=== PATIENT | female | born 1985 | race Two or more races ===

== ENCOUNTER 2016-05-10 10:13 | Day surgery (SDC) | payer OTHER, MEDICAID ==
--- NOTE | 2016-05-09 17:35 | HP ---
[facility] DATE OF SCHEDULED SURGERY: May 10, 2016 PREOPERATIVE DIAGNOSES: Desires tubal ligation. PROCEDURE PLANNED: Laparoscopic tubal ligation using Falope-Rings. HISTORY: The patient is a 30-year-old 5, para 5, woman who has been on a Depo for the last three years all without periods. She states she wants her tubes tied. She understands the procedure is permanent and there is no guarantee of success. She states her family is complete and wants something permanent done. PAST MEDICAL HISTORY: She denies major medical problems. PAST SURGICAL HISTORY: 1. Cholecystectomy. 2. One section and four V-MARELY. ALLERGIES: None. MEDICATIONS: None. FAMILY HISTORY: Noncontributory. SOCIAL HISTORY: Patient lives at home with her children. She is a light tobacco smoker. Does not use alcohol. REVIEW OF SYSTEMS: Patient denies any chills, fever, nausea, vomiting, diarrhea or constipation. PHYSICAL EXAMINATION: GENERAL: She is a healthy-appearing woman. VITAL SIGNS: Blood pressure 120/80. HEENT: Normal. LUNGS: Clear. HEART: Normal S1 and S2. ABDOMEN: Soft, nontender, with no guarding or rebound. PELVIC: External genitalia and vagina are normal. The cervix reveals no motion tenderness. The uterus is normal size. Adnexa are nontender with no masses. LABS: Her test is negative. IMPRESSION: The impression is a patient that desires tubal ligation. She understands this is a permanent procedure. PLAN: Plan is to do a laparoscopic tubal ligation on May 10, 2016.
[2016-05-10] MEDS ORDERED: LACTATED RINGERS 1,000 ML ONE (10:17)
[2016-05-10] MEDS ORDERED: IV START KIT ONE (10:18)
[2016-05-10] MEDS ORDERED: FENTANYL 100 MCG/2 ML VIAL ONE ×2 (11:41→12:58)
[2016-05-10] MEDS ORDERED: MIDAZOLAM HCL 1 MG/ML 2ML VIAL ONE (11:41)
[2016-05-10] MEDS ORDERED: BUPIVACAINE 0.5% (PRES FREE) 30 ML VIAL ONE (11:46)
[2016-05-10] MEDS ORDERED: SCOPOLAMINE 1.5 MG/72 HR 1 EACH PATCH TD ONE (11:48)
[2016-05-10] MEDS ORDERED: DIPHENHYDRAMINE HCL 50 MG/1 ML VIAL ONE (12:08)
[2016-05-10] MEDS ORDERED: DEXAMETHASONE SOD PHOS 4 MG/1 ML VIAL ONE (12:08)
[2016-05-10] MEDS ORDERED: PROPOFOL 20 ML IV ONE (12:08)
[2016-05-10] MEDS ORDERED: LIDOCAINE 2% (MULTI DOSE) 10 ML VIAL ONE (12:08)
[2016-05-10] MEDS ORDERED: ONDANSETRON 4 MG/2ML 2 ML VIAL ONE (12:08)
[2016-05-10] MEDS ORDERED: ROCURONIUM BROMIDE 10 MG/ML DOSE IV ONE (12:08)
[2016-05-10] MEDS ORDERED: HYDROMORPHONE HCL 1 MG/ML SYRINGE IV PRN (12:15)
[2016-05-10] MEDS ORDERED: PROMETHAZINE HCL 25 MG/ML VIAL IM PRN (12:15)
[2016-05-10] MEDS ORDERED: NALOXONE HCL 0.4 MG/ML VIAL IV PRN (12:15)
[2016-05-10] MEDS ORDERED: ONDANSETRON 4 MG/2ML 2 ML VIAL IV PRN ×2 (12:15→18:00)
[2016-05-10] MEDS ORDERED: LACTATED RINGERS 1,000 ML IV SCH (12:15)
[2016-05-10] MEDS ORDERED: FENTANYL 100 MCG/2 ML VIAL IV PRN (12:15)
[2016-05-10] MEDS ORDERED: ATROPINE SULFATE 0.4 MG/1 ML VIAL IV PRN (12:15)
[2016-05-10] MEDS ORDERED: NEOSTIGMINE METHYLSULFATE 1 MG/ML DOSE ONE (12:20)
[2016-05-10] MEDS ORDERED: GLYCOPYRROLATE 0.2 MG/ML 1ML VIAL ONE (12:20)
[2016-05-10] MEDS ORDERED: KETOROLAC TROMETHAMINE 30 MG/ML 1 ML VIAL ONE (12:20)
--- NOTE | 2016-05-10 13:12 | OP ---
Dora Gonzalez DATE OF SURGERY: 05/10/2016 PREOPERATIVE DIAGNOSIS: Desires tubal ligation. POSTOPERATIVE DIAGNOSIS: Desires tubal ligation. OPERATION PERFORMED: Laparoscopic tubal ligation with Falope rings. PROCEDURE: The patient was taken to the operating room and general anesthesia was administered. She was placed in the dorsolithotomy position and prepped and draped in the usual sterile fashion. The urinary bladder was drained. Bimanual exam showed a normal pelvis. Hulka uterine manipulator was inserted into the uterus. Surgeon changed gloves. A subumbilical skin incision was made with a scalpel through which a 5 mm Visiport was inserted and a pneumoperitoneum created. Findings showed that there were two large omental adhesions from the bowels in the anterior abdominal wall. These were too large to cut, however, we were able to work around them. The uterus was normal. The tubes and ovaries were normal. Each tube was identified by noting its fimbriated end. Each tube was grasped with the ligature and a Falope ring was placed on each tube leaving a 2 cm portion of white knuckle tissue within each ring. Ten millimeters of Marcaine were placed over each ring site. All instrument and carbon dioxide were removed. The incisions were closed with interrupted sutures of 3-0 Plain suture material. The patient tolerated the procedure well and was taken to the recovery room in stable condition. All sponge, instrument, and needle counts were correct. Estimated blood loss minimal. JOB: [id number]
[2016-05-10] MEDS ORDERED: OXYCODONE/ACETAMINOPHEN 5/325 MG TABLET PO PRN (13:21)
[2016-05-10] MEDS ORDERED: MORPHINE SULFATE 2 MG/ML SYRINGE IV PRN (13:21)
[2016-05-10] MEDS ORDERED: MORPHINE SULFATE 4 MG/ML SYRINGE IV PRN (13:36)
[2016-05-10] MEDS ORDERED: MORPHINE SULFATE 10 MG/ML SYRINGE IV PRN (13:41)
[2016-05-10] MEDS ORDERED: MORPHINE SULFATE 2 MG/ML SYRINGE ONE (13:52)
[2016-05-10] MEDS ORDERED: HYDROCODONE/ACETAMINOPHEN 5/325MG TABLET PO PRN (14:04)
[2016-05-10] MEDS ORDERED: KETOROLAC TROMETHAMINE 30 MG/ML 1 ML VIAL IV PRN (18:30)
== END 2016-05-10 15:15 | disposition home or self-care (01) ==
LOC: SDC 10:13
PROVIDERS: ATTEND Obstetrics & Gynecology
PROC: 0UL74CZ Occlusion of Bilateral Fallopian Tubes with Extraluminal Device, Percutaneous Endoscopic Approach (ICD-10-PCS; principal; 2016-05-10)
DX: Z30.2 Encounter for sterilization (principal); Z72.0 Tobacco use
CPT/HCPCS: 58671; L8699; J1200; J3010 ×2; J1100; J2270; A9270 ×2; J1885; J2250; J2405; J7120; J2001